=== PATIENT | male | born 1940 | race African-American/Black ===

== ENCOUNTER 2017-07-01 11:45 | Inpatient (IN) | payer MEDICARE ==
[2017-07-01] VITALS (128 sets, daily range): BP systolic 126–144; BP diastolic 87–115; PULSE 57–68; TEMP 97.6; O2SAT 86–100
[~2017-07-01] VITALS: Ht 172.7 cm; Wt 91.6 kg
[2017-07-01 15:33] LABS: BASO # 0.1 (0.0-0.2); BASO % 0.7 % (0.0-2.0); EOS # 0.2 (0.0-0.7); EOS % 1.2 % (0-4.0); GRAN # 7.6 (1.4-6.5); GRAN % 63.1 % (42.2-75.2); HEMATOCRIT 48.2 % (42.0-52.0); HEMOGLOBIN 15.7 g/dl (13.5-18.0); LYMPH # 3.1 (1.2-3.4); LYMPH % 25.9 % (20.0-51.0); MEAN CELL VOLUME 77 fl (80.0-100.0); MEAN CORPUSCULAR HEMOGLOBIN 25 pg (27.0-31.0); MEAN CORPUSCULAR HGB CONC 33 g/dl (33.0-37.0); MEAN PLATELET VOLUME 10.5 fl (7.4-10.4); MONO # 1.1 (0.1-0.6); MONO % 8.8 % (1.7-9.3); PLATELET COUNT 182 K/mm3 (130-400)
[2017-07-01 15:39] LABS: INR 1.2 (0.8-3.0)
[2017-07-01 15:42] LABS: PARTIAL THROMBOPLASTIN TIME 44.1 SECONDS (26.0-37.0)
[2017-07-01 15:53] LABS: ADJUSTED CALCIUM 9.3 mg/dL (8.4-10.2); ALBUMIN 4.3 gm/dL (3.5-5.0); BILIRUBIN,TOTAL 0.9 mg/dL (0.0-1.0); CALCIUM 9.5 mg/dL (8.4-10.2); CHOLESTEROL RISK RATIO 6.4; CREATININE, serum 1.16 mg/dL (0.66-1.25); MAGNESIUM 1.8 mg/dL (1.6-2.3); POTASSIUM 3.9 mmol/L (3.4-5.0); TOTAL PROTEIN 7.7 gm/dL (6.4-8.2)
[2017-07-01 16:06] LABS: TROPONIN-I 10.3 ng/mL (0.000-0.034)
[2017-07-01] MEDS ORDERED: PRINIVIL10 MG PO (17:45)
[2017-07-01] MEDS ORDERED: TOPROL XL 25MG25 MG PO (17:46)
== END 2017-07-01 18:45 | disposition short-term general hospital (02) | DRG 281 ==
LOC: ICU 11:45
PROVIDERS: Internal Medicine; Internal Medicine Cardiovascular Disease
PROC: B2111ZZ Fluoroscopy of Multiple Coronary Arteries using Low Osmolar Contrast (ICD-10-PCS; principal; 2017-07-01)
PROC: B2151ZZ Fluoroscopy of Left Heart using Low Osmolar Contrast (ICD-10-PCS; 2017-07-01)
PROC: 4A023N7 Measurement of Cardiac Sampling and Pressure, Left Heart, Percutaneous Approach (ICD-10-PCS; 2017-07-01)
DX: I21.4 Non-ST elevation (NSTEMI) myocardial infarction (principal); I48.92 Unspecified atrial flutter; I10 Essential (primary) hypertension; F17.210 Nicotine dependence, cigarettes, uncomplicated; I25.10 Atherosclerotic heart disease of native coronary artery without angina pectoris
CPT/HCPCS: 99223-AI; J1644; J2270; J2405; J3010; J7030; Q9967

== ENCOUNTER → 2020-08-01 | Outpatient (CLI) | payer MEDICARE ==
[~2020-08-01] MED LIST: ASPIRIN 81M81 MG/TA2 PO; ELIQUIS 5MG PO; K-DUR20 MEQ PO; LASIX 20MG TABL20 MG PO; LIPITOR 40MG TA40 MG PO; NITROSTAT0.4 MG/TAB SL; PLAVIX 75MG TAB75 MG PO; PRINIVIL10 MG PO; TOPROL XL 25MG25 MG PO; ULTRAM 50MG TAB50 MG PO; ZESTRIL 5MG5 MG PO; ZYLOPRIM 100MG100 MG PO
[2020-08-01 09:14] LABS: BASO # 0.1 (0.0-0.2); BASO % 0.8 % (0.0-2.0); EOS # 0.2 (0.0-0.7); GRAN # 6.7 (1.4-6.5); GRAN % 65.3 % (42.2-75.2); HEMATOCRIT 43.6 % (42.0-52.0); HEMOGLOBIN 13.7 g/dl (13.5-18.0); LYMPH # 2.1 (1.2-3.4); LYMPH % 20.6 % (20.0-51.0); MEAN CELL VOLUME 77 fl (80.0-100.0); MEAN CORPUSCULAR HEMOGLOBIN 24 pg (27.0-31.0); MEAN CORPUSCULAR HGB CONC 31 g/dl (33.0-37.0); MEAN PLATELET VOLUME 12.2 fl (7.4-10.4); MONO # 1.1 (0.1-0.6); MONO % 10.8 % (1.7-9.3); PLATELET COUNT 373 K/mm3 (130-400); RED BLOOD COUNT 5.65 M/mm3 (4.20-5.60); REDCELL DISTRIBUTION WIDTH-CV 15.7 % (11.5-14.5)
[2020-08-01 09:58] LABS: ALBUMIN 3.5 gm/dL (3.5-5.0); CALCIUM 9.4 mg/dL (8.4-10.2); CHOLESTEROL RISK RATIO 5.8; CREATININE, serum 1.44 (0.66-1.25); POTASSIUM 4.2 mmol/L (3.4-5.0); TOTAL PROTEIN 7.1 gm/dL (6.4-8.2); URIC ACID 9.7 mg/dL (3.5-8.5)
== END ==
LOC: ZCOL.LAB 07:46
PROVIDERS: Internal Medicine
DX: I10 Essential (primary) hypertension (principal); I25.10 Atherosclerotic heart disease of native coronary artery without angina pectoris

== ENCOUNTER → 2020-08-11 | Outpatient (CLI) | payer MEDICARE ==
[2020-08-11 12:17] LABS: IRON,SERUM 39 ug/dL (35-150)
[2020-08-11 12:30] LABS: TOTAL IRON BINDING CAPACITY 272 ug/dL (261-462)
== END ==
LOC: ZCOL.LAB 11:20
PROVIDERS: Internal Medicine
DX: R71.8 Other abnormality of red blood cells (principal)

== ENCOUNTER 2020-09-02 18:27 | Emergency (ER) | payer MEDICARE, MEDICAID ==
[~2020-09-02] VITALS: Ht 172.7 cm; Wt 100.0 kg
[2020-09-02 18:28] VITALS: TEMP 97.6
[2020-09-02 19:05] LABS: BASO # 0.1 (0.0-0.2); BASO % 0.7 % (0.0-2.0); EOS # 0.4 (0.0-0.7); EOS % 3.3 % (0-4.0); GRAN # 7.4 (1.4-6.5); GRAN % 62.8 % (42.2-75.2); HEMATOCRIT 42.5 % (42.0-52.0); HEMOGLOBIN 13.4 g/dl (13.5-18.0); LYMPH % 25.3 % (20.0-51.0); MEAN CELL VOLUME 78 fl (80.0-100.0); MEAN CORPUSCULAR HEMOGLOBIN 25 pg (27.0-31.0); MEAN CORPUSCULAR HGB CONC 32 g/dl (33.0-37.0); MONO # 0.9 (0.1-0.6); MONO % 7.6 % (1.7-9.3); PLATELET COUNT 295 K/mm3 (130-400); RED BLOOD COUNT 5.48 M/mm3 (4.20-5.60); REDCELL DISTRIBUTION WIDTH-CV 16.6 % (11.5-14.5)
[2020-09-02 19:18] LABS: ALANINE AMINOTRANSFERASE 29 U/L (4-49); ALKALINE PHOSPHATASE 114 U/L (50-136); ANION GAP 9 mmol/L (7-16); AST,SGOT 24 U/L (15-37); BILIRUBIN,TOTAL 0.5 mg/dL (0.0-1.0); BLOOD UREA NITROGEN 19 mg/dL (9-20); C-REACTIVE PROTEIN 0.7 mg/dL (0.0-0.9); CALCIUM 9.4 mg/dL (8.4-10.2); CARBON DIOXIDE 24 mmol/L (22-30); CHLORIDE 107 mmol/L (98-107); GLUCOSE 123 mg/dL (74-106); LIPASE 130 U/L (23-300); SODIUM 140 mmol/L (137-145); TOTAL PROTEIN 7.5 gm/dL (6.4-8.2)
[2020-09-02 19:28] LABS: TROPONIN-I < 0.012 ng/mL (0.000-0.035)
[2020-09-02 19:39] LABS: COLLECTION METHOD CLEAN CATCH
[2020-09-02 19:47] LABS: MUCOUS Present /lpf; PH 5 (5-8); SQUAMOUS EPITHELIAL 0-2 /hpf; URINE APPEARANCE Clear; URINE BACTERIA Rare /hpf; URINE BILIRUBIN Negative (NEGATIVE); URINE BLOOD Negative (NEGATIVE); URINE COLOR Yellow; URINE GLUCOSE Negative (NEGATIVE); URINE KETONE Negative (NEGATIVE); URINE LEUKOCYTE ESTERASE Negative (NEGATIVE); URINE NITRATE Negative (NEGATIVE); URINE PROTEIN(semi-quant) Negative (NEGATIVE); URINE RBC 0-2 /hpf
[2020-09-02 21:20] VITALS: BP 156/87; PULSE 83
== END 2020-09-02 21:20 | disposition home or self-care (01) ==
LOC: COL.ER 18:27
PROVIDERS: Nurse Practitioner
DX: R11.10 Vomiting, unspecified (principal); I48.91 Unspecified atrial fibrillation; Z20.822 Contact with and (suspected) exposure to COVID-19; Z79.82 Long term (current) use of aspirin; Z79.01 Long term (current) use of anticoagulants; Z79.02 Long term (current) use of antithrombotics/antiplatelets
CPT/HCPCS: J7030; Q9967

== ENCOUNTER → 2020-10-20 | Outpatient (CLI) | payer MEDICARE, MEDICAID ==
[2020-10-20 10:01] LABS: ALBUMIN 3.9 gm/dL (3.5-5.0); BILIRUBIN,TOTAL 0.9 mg/dL (0.0-1.0); CALCIUM 9.3 mg/dL (8.4-10.2); CREATININE, serum 1.15 (0.66-1.25); POTASSIUM 4.3 mmol/L (3.4-5.0); TOTAL PROTEIN 7.6 gm/dL (6.4-8.2); URIC ACID 7.9 mg/dL (3.5-8.5)
== END ==
LOC: ZCOL.LAB 08:35
PROVIDERS: Internal Medicine
DX: M10.9 Gout, unspecified (principal); E11.9 Type 2 diabetes mellitus without complications

== ENCOUNTER → 2020-10-30 | Outpatient (CLI) | payer MEDICARE, MEDICAID | LOC: ZCOL.LAB 06:37 | DX: E11.9 Type 2 diabetes mellitus without complications (principal) ==

== ENCOUNTER 2021-01-13 12:06 | Emergency (ER) | payer MEDICARE, MEDICAID ==
[~2021-01-13] VITALS: Ht 172.7 cm; Wt 94.1 kg
[2021-01-13 12:07] VITALS: TEMP 97.3
[2021-01-13 13:20] LABS: BASO # 0.1 (0.0-0.2); BASO % 0.9 % (0.0-2.0); EOS # 0.5 (0.0-0.7); EOS % 4.2 % (0-4.0); GRAN # 5.7 (1.4-6.5); GRAN % 52.5 % (42.2-75.2); HEMATOCRIT 49.6 % (42.0-52.0); HEMOGLOBIN 15.8 g/dl (13.5-18.0); LYMPH # 3.4 (1.2-3.4); LYMPH % 30.9 % (20.0-51.0); MEAN CELL VOLUME 76 fl (80.0-100.0); MEAN CORPUSCULAR HEMOGLOBIN 24 pg (27.0-31.0); MEAN CORPUSCULAR HGB CONC 32 g/dl (33.0-37.0); MEAN PLATELET VOLUME 10.6 fl (7.4-10.4); MONO # 1.2 (0.1-0.6); MONO % 11.1 % (1.7-9.3); PLATELET COUNT 240 K/mm3 (130-400); RED BLOOD COUNT 6.51 M/mm3 (4.20-5.60); REDCELL DISTRIBUTION WIDTH-CV 19.1 % (11.5-14.5)
[2021-01-13 13:26] LABS: ALBUMIN 4.3 gm/dL (3.5-5.0); BILIRUBIN,TOTAL 0.6 mg/dL (0.0-1.0); CALCIUM 9.8 mg/dL (8.4-10.2); CREATININE, serum 1.11 (0.66-1.25); TOTAL PROTEIN 8.4 gm/dL (6.4-8.2)
[2021-01-13 13:39] LABS: TROPONIN-I 0.021 ng/mL (0.000-0.035)
[2021-01-13 18:13] VITALS: BP 137/88; PULSE 69
== END 2021-01-13 18:13 | disposition home or self-care (01) ==
LOC: COL.ER 12:06
PROVIDERS: Emergency Medicine
DX: R07.9 Chest pain, unspecified (principal); I11.0 Hypertensive heart disease with heart failure; I50.9 Heart failure, unspecified; I48.91 Unspecified atrial fibrillation; E78.5 Hyperlipidemia, unspecified; M10.9 Gout, unspecified; Z79.82 Long term (current) use of aspirin; Z79.01 Long term (current) use of anticoagulants; Z79.899 Other long term (current) drug therapy

== ENCOUNTER 2021-10-06 17:44 | Emergency (ER) | payer MEDICARE, MEDICAID ==
[~2021-10-06] VITALS: Ht 172.7 cm; Wt 90.9 kg
[2021-10-06 18:07] LABS: BASO # 0.1 K/mm3 (0.0-0.2); BASO % 0.7 % (0.0-2.0); EOS # 0.3 K/mm3 (0.0-0.7); EOS % 3.1 % (0.0-4.0); GRAN # 6.3 K/mm3 (1.4-6.5); GRAN % 58.2 % (42.2-75.2); HEMATOCRIT 45.3 % (42.0-52.0); HEMOGLOBIN 14.5 g/dl (13.5-18.0); LYMPH # 3.2 K/mm3 (1.2-3.4); MEAN CELL VOLUME 77 fl (80.0-100.0); MEAN CORPUSCULAR HEMOGLOBIN 25 pg (27-31); MEAN CORPUSCULAR HGB CONC 32 g/dl (33.0-37.0); MONO # 0.8 K/mm3 (0.1-0.6); MONO % 7.6 % (1.7-9.3); PLATELET COUNT 243 K/mm3 (130-400); RED BLOOD COUNT 5.85 M/mm3 (4.20-5.60); REDCELL DISTRIBUTION WIDTH-CV 16.4 % (11.5-14.5)
[2021-10-06 18:16] LABS: PROTHROMBIN TIME 22.8 SECONDS (9.7-12.8)
[2021-10-06 18:31] LABS: BILIRUBIN,TOTAL 0.6 mg/dL (0.2-1.2); CALCIUM 9.1 mg/dL (8.4-10.2); CREATININE, serum 1.47 mg/dL (0.72-1.25); POTASSIUM 4.9 mmol/L (3.5-4.5); TOTAL PROTEIN 7.4 gm/dL (6.2-8.1)
[2021-10-06 18:36] LABS: TROPONIN-I 0.013 ng/mL (0.00-0.033)
[2021-10-06 19:27] LABS: COLLECTION METHOD CLEAN CATCH
[2021-10-06 19:47] LABS: MUCOUS Present (NOT PRESENT); PH 5 (5-8); SQUAMOUS EPITHELIAL None Seen /hpf (0-10); URINE APPEARANCE Clear (CLEAR/HAZY); URINE BACTERIA None Seen /hpf (NONE SEEN); URINE BILIRUBIN Negative (NEGATIVE); URINE BLOOD Negative (NEGATIVE); URINE COLOR Yellow (YELLOW); URINE GLUCOSE Negative (NEGATIVE); URINE KETONE Negative (NEGATIVE); URINE LEUKOCYTE ESTERASE Negative (NEGATIVE); URINE NITRATE Negative (NEGATIVE); URINE PROTEIN(semi-quant) Negative (NEGATIVE); URINE RBC 0-2 /hpf (0-2); URINE WBC 0-2 /hpf (0-2)
[2021-10-06 20:14] VITALS: BP 132/64; PULSE 78; TEMP 98.7
== END 2021-10-06 20:14 | disposition home or self-care (01) ==
LOC: COL.ER 17:44
PROVIDERS: Emergency Medicine
DX: N28.9 Disorder of kidney and ureter, unspecified (principal); R55 Syncope and collapse; R94.4 Abnormal results of kidney function studies
CPT/HCPCS: J7030

== ENCOUNTER 2021-11-24 16:53 | Emergency (ER) | payer MEDICARE, MEDICAID ==
[~2021-11-24] VITALS: Ht 172.7 cm; Wt 90.9 kg
[2021-11-24 17:07] VITALS: TEMP 98.7
[2021-11-24] MEDS ORDERED: DOXYCYCLINE 10100 MG PO (17:49)
[2021-11-24 18:50] VITALS: BP 125/86; PULSE 72
== END 2021-11-24 18:52 | disposition home or self-care (01) ==
LOC: COL.ER 16:53
DX: L02.212 Cutaneous abscess of back [any part, except buttock and flank] (principal)

== ENCOUNTER 2022-01-17 20:06 | Emergency (ER) | payer MEDICARE, MEDICAID ==
[~2022-01-17] VITALS: Ht 172.7 cm; Wt 96.9 kg
[~2022-01-17 20:06] MED LIST changes: +DOXYCYCLINE 10100 MG PO
[2022-01-17 20:13] VITALS: TEMP 97.5
[2022-01-17 20:37] LABS: BASO # 0.1 K/mm3 (0.0-0.2); BASO % 0.8 % (0.0-2.0); EOS # 0.4 K/mm3 (0.0-0.7); EOS % 3.5 % (0.0-4.0); GRAN # 5.5 K/mm3 (1.4-6.5); GRAN % 55.3 % (42.2-75.2); HEMATOCRIT 42.2 % (42.0-52.0); HEMOGLOBIN 13.4 g/dl (13.5-18.0); LYMPH # 2.9 K/mm3 (1.2-3.4); LYMPH % 29.5 % (20.0-51.0); MEAN CELL VOLUME 79 fl (80.0-100.0); MEAN CORPUSCULAR HEMOGLOBIN 25 pg (27-31); MEAN CORPUSCULAR HGB CONC 32 g/dl (33.0-37.0); MEAN PLATELET VOLUME 10.7 fl (7.4-10.4); MONO # 1.1 K/mm3 (0.1-0.6); MONO % 10.6 % (1.7-9.3); PLATELET COUNT 248 K/mm3 (130-400); RED BLOOD COUNT 5.37 M/mm3 (4.20-5.60); REDCELL DISTRIBUTION WIDTH-CV 16.1 % (11.5-14.5)
[2022-01-17 20:53] LABS: ALBUMIN 3.5 gm/dL (3.4-4.8); BILIRUBIN,TOTAL 0.5 mg/dL (0.2-1.2); CALCIUM 8.6 mg/dL (8.4-10.2); CREATININE, serum 1.44 mg/dL (0.72-1.25); POTASSIUM 4.7 mmol/L (3.5-4.5); TOTAL PROTEIN 6.7 gm/dL (6.2-8.1)
[2022-01-17 20:59] LABS: TROPONIN-I 0.031 ng/mL (0.00-0.033)
[2022-01-17 22:28] LABS: COLLECTION METHOD CLEAN CATCH
[2022-01-17 22:35] LABS: MUCOUS Present (NOT PRESENT); PH 5 (5-8); SQUAMOUS EPITHELIAL 0-2 /hpf (0-10); URINE APPEARANCE Hazy (CLEAR/HAZY); URINE BACTERIA None Seen /hpf (NONE SEEN); URINE COLOR Yellow (YELLOW); URINE PROTEIN(semi-quant) Negative (NEGATIVE); URINE RBC 0-2 /hpf (0-2)
[2022-01-17 22:36] LABS: URINE BLOOD Negative (NEGATIVE); URINE GLUCOSE Negative (NEGATIVE); URINE KETONE Negative (NEGATIVE); URINE LEUKOCYTE ESTERASE Negative (NEGATIVE); URINE NITRATE Negative (NEGATIVE)
[2022-01-17 22:37] LABS: URINE BILIRUBIN Positive (NEGATIVE)
[2022-01-17 23:26] VITALS: BP 138/91; PULSE 71
== END 2022-01-17 23:24 | disposition home or self-care (01) ==
LOC: COL.ER 20:06
PROVIDERS: Emergency Medicine
DX: I48.92 Unspecified atrial flutter (principal); R53.1 Weakness; Z95.5 Presence of coronary angioplasty implant and graft; Z20.822 Contact with and (suspected) exposure to COVID-19

== ENCOUNTER 2022-04-27 10:18 | Outpatient (CLI) | payer MEDICARE, MEDICAID ==
[~2022-04-27 10:18] MED LIST changes: +K-DUR 10 MEQ T10 MEQ PO; -K-DUR20 MEQ PO; -LASIX 20MG TABL20 MG PO; +LASIX 40MG TABL40 MG PO
[2022-04-27 10:59] VITALS: BP 144/74; PULSE 59; TEMP 98.5
[2022-04-27] MEDS ORDERED: NORVASC 5MG5 MG/TAB PO (11:26)
[2022-04-27] MEDS ORDERED: LIPITOR 80MG80 MG PO (11:27)
[2022-04-27] MEDS ORDERED: D3-5050000 IU PO (11:28)
[2022-04-27] MEDS ORDERED: ISORDIL TITRADO30 MG PO (11:29)
[2022-04-27] MEDS ORDERED: MIRALAX PA17 GM/Dose PO (11:30)
[2022-04-27] MEDS ORDERED: COZAAR 50MG50 MG/TAB PO (11:30)
[2022-04-27] MEDS ORDERED: COREG 3.123.125 MG/T PO (11:31)
[2022-04-27] MEDS ORDERED: TYLENOL 500MG500 MG PO (11:33)
[2022-04-27 12:11] VITALS: BP 158/91; PULSE 71
[2022-04-27] MEDS ORDERED: CEPHALEXIN500 M1 PO (12:12)
--- NOTE | 2022-04-27 12:58 | NUR ---
PT ready for departure after loop implantation. I have called report to [facility], spoke with Brant GREENBERG. I plan to call her back with follow up plan as that was not included in dc instructions. I also discussed discharge/ follow up and rx instructions with pt's sister who plans to package pick up pt's keflex rx and deliver it to his place of residence. dressing to chest is clean and dry and there is no swelling at site at time of departure. Pt tolerated his visit well with no problems, although he is quite ready to go now. to exit via wheelchair with his sister.
--- NOTE | 2022-04-27 12:58 | NUR ---
PT ready for departure after loop implantation. I have called report to [facility], spoke with Brant GREENBERG. I plan to call her back with follow up plan as that was not included in dc instructions. I also discussed discharge/ follow up and rx instructions with pt's sister who plans to warehouse order picker pt's keflex rx and deliver it to his place of residence. dressing to chest is clean and dry and there is no swelling at site at time of departure. Pt tolerated his visit well with no problems, although he is quite ready to go now. to exit via wheelchair with his sister.
--- NOTE | 2022-04-27 18:03 | NUR ---
I called [facility] and spoke with Brant to advise her of plan to have snf physician perform an incision check in one week, and to call [facility] for any questions. I also called pt's sister Mark to pass along the follow plan as well. Both verbalized understanding.
--- NOTE | 2022-04-27 18:03 | NUR ---
I called [facility] and spoke with Brant to advise her of plan to have [facility] physician perform an incision check in one week, and to call [facility] for any questions. I also called pt's sister Mark to pass along the follow plan as well. Both verbalized understanding.
== END 2022-04-27 13:15 | disposition home or self-care (01) ==
LOC: COL.CAR 10:18
DX: I48.20 Chronic atrial fibrillation, unspecified (principal); I08.3 Combined rheumatic disorders of mitral, aortic and tricuspid valves; I25.5 Ischemic cardiomyopathy; I25.10 Atherosclerotic heart disease of native coronary artery without angina pectoris; I27.20 Pulmonary hypertension, unspecified; Z79.01 Long term (current) use of anticoagulants; Z87.891 Personal history of nicotine dependence
CPT/HCPCS: 27886; C1764